=== PATIENT | female | born 2000 | race Two or more races ===

== ENCOUNTER 2022-01-27 03:03 | Emergency (ER) | payer SELFPAY ==
[~2022-01-27] VITALS: Ht 170.2 cm; Wt 98.0 kg
[2022-01-27 04:25] LABS: BASOPHILS % 0.4 % (0.0-2.0); EOSINOPHILS % 0.7 % (0.0-5.0); HEMATOCRIT. 37.7 % (36.0-48.0); HEMOGLOBIN. 13.1 g/dL (12.0-16.0); LYMPHOCYTES % 25.2 % (20.0-50.0); MEAN CORPUSCULAR HEMOGLOBIN 31.9 pg (28.0-32.0); MEAN CORPUSCULAR VOLUME 91.4 fL (81.0-99.0); MEAN PLATELET VOLUME 8.1 fl (7.4-10.4); MONOCYTES % 9.4 % (2.0-8.0); NEUTROPHILS % 64.3 % (40.0-76.0); PLATELET 278 x1000/uL (130-400); RED BLOOD CELL COUNT 4.13 mill/uL (4.2-5.4); RED CELL DISTRIBUTION WIDTH 13.6 % (11.6-14.6)
[2022-01-27 04:32] LABS: CHLORIDE 108 mEq/L (98-107)
[2022-01-27 04:37] LABS: ETHANOL BLOOD < 10 mg/dL
[2022-01-27 04:45] LABS: CLARITY URINE CLEAR (CLEAR); COLOR URINE YELLOW (YELLOW); KETONES URINE 1+ (NEGATIVE); LEUKOCYTE ESTERASE URINE NEGATIVE (NEGATIVE); NITRITE URINE NEGATIVE (NEGATIVE); OCCULT BLOOD URINE NEGATIVE (NEGATIVE); PH URINE 6.5 (4.5-8.0); PROTEIN URINE NEGATIVE (NEGATIVE); SPECIFIC GRAVITY URINE 1.032 (1.005-1.030)
[2022-01-27 05:22] LABS: *AMPHETAMINES SCREEN URINE NEGATIVE (NEGATIVE); *BARBITURATES SCREEN URINE NEGATIVE (NEGATIVE); *BENZODIAZEPINES SCREEN URINE NEGATIVE (NEGATIVE); *COCAINE SCREEN URINE NEGATIVE (NEGATIVE); METHADONE URINE SCREEN NEGATIVE (NEGATIVE); OPIATES URINE SCREEN NEGATIVE (NEGATIVE)
[2022-01-27 05:23] LABS: CANNABINOID URINE SCREEN NEGATIVE (NEGATIVE); PHENCYCLIDINE URINE SCREEN NEGATIVE (NEGATIVE)
[2022-01-27] MEDS: FLUOXETINE HCL 20MG CAPSULE PO SCH (14:16)
[2022-01-27] MEDS: OLANZAPINE 2.5MG TABLET PO SCH ×2 (14:16→21:01)
[2022-01-28] MEDS: OLANZAPINE 5MG TABLET PO SCH ×2 (10:06→22:18)
[2022-01-28] MEDS: FLUOXETINE HCL 20MG CAPSULE PO SCH (10:06)
[2022-01-29] MEDS: OLANZAPINE 5MG TABLET PO SCH (10:22)
[2022-01-29] MEDS: FLUOXETINE HCL 20MG CAPSULE PO SCH (10:22)
[2022-01-29] MEDS ORDERED: OLAN5TAB3 MT (12:02)
[2022-01-29] MEDS ORDERED: OLAN5TAB3 PO (12:02)
[2022-01-29 13:00] VITALS: BP 112/74
== END 2022-01-29 13:13 | disposition home or self-care (01) ==
LOC: ER 03:03
DX: S61.519A Laceration without foreign body of unspecified wrist, initial encounter (principal); R45.851 Suicidal ideations; W26.8XXA Contact with other sharp object(s), not elsewhere classified, initial encounter; Y93.89 Activity, other specified; Y92.89 Other specified places as the place of occurrence of the external cause; Y99.8 Other external cause status; F32.9 Major depressive disorder, single episode, unspecified; Z20.822 Contact with and (suspected) exposure to COVID-19
CPT/HCPCS: 36415; 80053; 80305; 80307; 80320; 80329; 81003; 81025; 85025; 87426; 99285; C9803; U0003; U0005; G0480